=== PATIENT | female | born 1935 | race Caucasian/White ===

== ENCOUNTER 2018-04-03 09:44 | Inpatient (IN) | payer MEDICARE ==
[2018-04-03] VITALS (15 sets, daily range): BP systolic 98–154; BP diastolic 60–97
[~2018-04-03] VITALS: Ht 165.1 cm; Wt 93.8 kg
[~2018-04-03 09:44] MED LIST: ACYCLOVIR400 MG PO; ADLT ASA LOW81 MG PO; LASIX 20 MG TAB20 MG PO; LORTAB 5 PO; LORTAB 7.5-3251 TAB PO; LOVASTATIN20 M1 PO; LOVASTATIN20 MG PO; LYRICA50 MG PO; METO50TA52 PO; METOPROL TAR50 MG PO; METOPROLOL TART50 MG PO; NAPROSYN500 MG PO; PERCOCET 10/31 COMBO PO; POT CHLORIDE10 ME1 PO; PREVACID15 M1 PO; PREVACID30 M3 PO; UNABLE TO RECONCILE; XANAX0.25 MG PO; ZPAK PO
[2018-04-03 10:06] LABS: HEMATOCRIT 32.4 % (37.0-47.0); HEMOGLOBIN 10.4 g/dl (12.0-16.0); IMMATURE GRANULOCYTES 0.4 % (0.0-5.0); MEAN CELL VOLUME 96.7 fL CALC (80.0-100.0); MEAN CORPUSCULAR HGB CONC 32.1 g/L CALC (32.0-36.0); NEUT# 4.4 thou/uL (2.00-7.15); RED BLOOD COUNT 3.35 mill/uL (4.20-5.60); RED CELL DISTRI WIDTH 14.3 % (11.5-15.5)
[2018-04-03 10:31] LABS: ALBUMIN 3.7 g/dL (3.2-5.0); ALKALINE PHOSPHATASE 118 u/l (38-126); ANION GAP 15 (6-22 (CALC)); BILIRUBIN, TOTAL 1.1 mg/dL (0.0-1.4); BUN 18 mg/dL (8-23); BUN/CREATININE RATIO 17 (12-20 (CALC)); CARBON DIOXIDE 27 mmol/l (22-30); CHLORIDE 96 mmol/l (95-108); CREATININE 1.1 mg/dL (0.5-1.0); GFR 47 ML/MIN (>=60 (CALC)); GFR FOR AFR.AMER. 57 ML/MIN (>=60 (CALC)); POTASSIUM 4.7 mmol/l (3.5-5.1); SGOT/AST 27 u/l (9-36); SODIUM 132 mmol/l (137-146); TOTAL PROTEIN 6.9 g/dL (6.3-8.2)
[2018-04-03 10:35] LABS: INTERNATIONAL NORMALIZED RATIO 5.8 RATIO (0.7-1.3); PROTHROMBIN TIME 59.6 SECONDS (9.0-12.5)
[2018-04-03 10:42] LABS: MYOGLOBIN 115 ng/mL (0 - 62)
[2018-04-03] MEDS ORDERED: BUMETANIDE0.5 M1 PO (12:40)
[2018-04-03] MEDS ORDERED: BUSPAR5 M1 PO (12:42)
[2018-04-03] MEDS ORDERED: COUMADIN5 MG PO (12:45)
[2018-04-03] MEDS ORDERED: FOLIC ACID400 MC1 PO (12:48)
[2018-04-03] MEDS ORDERED: LASIX 40 MG TAB40 MG PO (12:50)
[2018-04-03] MEDS ORDERED: LEXAPRO5 MG PO (12:52)
[2018-04-03] MEDS ORDERED: ALTOPREV20 MG PO (12:53)
[2018-04-03] MEDS ORDERED: MULTIVITAMI9 PO (12:54)
[2018-04-03] MEDS ORDERED: SENNA-TABS8.6 MG PO (12:58)
[2018-04-03] MEDS ORDERED: AZITHROMYCIN500 MG PO (13:04)
[2018-04-03] MEDS ORDERED: COREG6.25 MG PO (13:06)
[2018-04-03] MEDS ORDERED: POTASSIUM CHLO10 MEQ PO (13:07)
[2018-04-03] MEDS ORDERED: NYSTATIN100000 UNI TOP (13:12)
[2018-04-03] MEDS ORDERED: IPRATROPIU0.5 MG/3 M IN (13:14)
[2018-04-03] MEDS ORDERED: ACETAMINOPHEN325 MG PO (13:16)
[2018-04-03] MEDS ORDERED: TRAMADOL HYDROC50 MG PO (13:19)
[2018-04-03] MEDS ORDERED: MIRALAX3350 NF PO (13:20)
[2018-04-03 15:07] LABS: URINE BILIRUBIN - DIPSTICK NEGATIVE (NEGATIVE); URINE BLOOD DIPSTICK MODERATE (NEGATIVE); URINE COLOR YELLOW; URINE GLUCOSE - DIPSTICK NEGATIVE (NEGATIVE); URINE KETONE NEGATIVE (NEGATIVE); URINE LEUK ESTERASE NEGATIVE (NEGATIVE); URINE NITRITE - DIPSTICK NEGATIVE (Negative); URINE PH 5.5 (4.5-8.0); URINE PROTEIN - DIPSTICK NEGATIVE (NEG-TRACE); URINE UROBILINOGEN - DIPSTICK 0.2 E.U./dL (0.2)
[2018-04-03 15:40] LABS: URINE CLARITY CLEAR
[2018-04-03 16:03] LABS: URINE SQUAMOUS EPITHELIAL CELL FEW EPI/hpf (0-FEW)
[2018-04-04] VITALS (21 sets, daily range): BP systolic 92–137; BP diastolic 59–94
[2018-04-04 05:19] LABS: HEMOGLOBIN 9.4 g/dl (12.0-16.0); IMMATURE GRANULOCYTES 0.2 % (0.0-5.0); MEAN CELL VOLUME 96.3 fL CALC (80.0-100.0); MEAN CORPUSCULAR HGB 31.2 pG CALC (26.0-32.0); MEAN CORPUSCULAR HGB CONC 32.4 g/L CALC (32.0-36.0); NEUT# 3.95 thou/uL (2.00-7.15); RED BLOOD COUNT 3.01 mill/uL (4.20-5.60); RED CELL DISTRI WIDTH 14.4 % (11.5-15.5)
[2018-04-04 05:35] LABS: INTERNATIONAL NORMALIZED RATIO 3.7 RATIO (0.7-1.3); PROTHROMBIN TIME 38.1 SECONDS (9.0-12.5)
[2018-04-04 05:38] LABS: ALBUMIN 3.8 g/dL (3.2-5.0); BILIRUBIN, TOTAL 1.5 mg/dL (0.0-1.4); CREATININE 1.2 mg/dL (0.5-1.0); MAGNESIUM 1.7 mg/dL (1.6-2.3); POTASSIUM 3.8 mmol/l (3.5-5.1); TOTAL PROTEIN 6.7 g/dL (6.3-8.2)
[2018-04-05] VITALS (15 sets, daily range): BP systolic 98–137; BP diastolic 62–85
[2018-04-05 06:04] LABS: INTERNATIONAL NORMALIZED RATIO 4.1 RATIO (0.7-1.3); PROTHROMBIN TIME 42.5 SECONDS (9.0-12.5)
[2018-04-05 06:05] LABS: HEMOGLOBIN 9.8 g/dl (12.0-16.0); MEAN CELL VOLUME 96.8 fL CALC (80.0-100.0); MEAN CORPUSCULAR HGB 31.6 pG CALC (26.0-32.0); MEAN CORPUSCULAR HGB CONC 32.7 g/L CALC (32.0-36.0); RED BLOOD COUNT 3.1 mill/uL (4.20-5.60); RED CELL DISTRI WIDTH 14.6 % (11.5-15.5)
[2018-04-05 06:45] LABS: CREATININE 1.5 mg/dL (0.5-1.0); POTASSIUM 4.1 mmol/l (3.5-5.1)
[2018-04-06] VITALS (17 sets, daily range): BP systolic 90–133; BP diastolic 60–85
[2018-04-06 05:53] LABS: HEMATOCRIT 30.2 % (37.0-47.0); HEMOGLOBIN 9.7 g/dl (12.0-16.0); MEAN CELL VOLUME 97.7 fL CALC (80.0-100.0); MEAN CORPUSCULAR HGB 31.4 pG CALC (26.0-32.0); MEAN CORPUSCULAR HGB CONC 32.1 g/L CALC (32.0-36.0); RED BLOOD COUNT 3.09 mill/uL (4.20-5.60); RED CELL DISTRI WIDTH 14.4 % (11.5-15.5)
[2018-04-06 06:18] LABS: CREATININE 1.5 mg/dL (0.5-1.0); MAGNESIUM 1.6 mg/dL (1.6-2.3); POTASSIUM 4.1 mmol/l (3.5-5.1)
[2018-04-06 06:30] LABS: INTERNATIONAL NORMALIZED RATIO 5.9 RATIO (0.7-1.3); PROTHROMBIN TIME 60.4 SECONDS (9.0-12.5)
[2018-04-07] VITALS (13 sets, daily range): BP systolic 101–134; BP diastolic 65–88
[2018-04-07 05:34] LABS: HEMATOCRIT 29.2 % (37.0-47.0); HEMOGLOBIN 9.4 g/dl (12.0-16.0); IMMATURE GRANULOCYTES 0.4 % (0.0-5.0); MEAN CELL VOLUME 97.7 fL CALC (80.0-100.0); MEAN CORPUSCULAR HGB 31.4 pG CALC (26.0-32.0); MEAN CORPUSCULAR HGB CONC 32.2 g/L CALC (32.0-36.0); NEUT# 3.7 thou/uL (2.00-7.15); RED BLOOD COUNT 2.99 mill/uL (4.20-5.60); RED CELL DISTRI WIDTH 14.4 % (11.5-15.5)
[2018-04-07 05:40] LABS: ALBUMIN 3.3 g/dL (3.2-5.0); BILIRUBIN, TOTAL 1.2 mg/dL (0.0-1.4); CREATININE 1.5 mg/dL (0.5-1.0); MAGNESIUM 1.9 mg/dL (1.6-2.3); POTASSIUM 4.3 mmol/l (3.5-5.1); TOTAL PROTEIN 6.1 g/dL (6.3-8.2)
[2018-04-07 05:46] LABS: INTERNATIONAL NORMALIZED RATIO 5.6 RATIO (0.7-1.3)
[2018-04-08 05:26] VITALS: BP 134/89
[2018-04-08 05:44] LABS: ALBUMIN 3.4 g/dL (3.2-5.0); BILIRUBIN, TOTAL 1.1 mg/dL (0.0-1.4); CREATININE 1.6 mg/dL (0.5-1.0); HEMATOCRIT 29.2 % (37.0-47.0); HEMOGLOBIN 9.3 g/dl (12.0-16.0); IMMATURE GRANULOCYTES 0.6 % (0.0-5.0); MEAN CORPUSCULAR HGB 31.2 pG CALC (26.0-32.0); MEAN CORPUSCULAR HGB CONC 31.8 g/L CALC (32.0-36.0); NEUT# 3.37 thou/uL (2.00-7.15); POTASSIUM 4.4 mmol/l (3.5-5.1); RED BLOOD COUNT 2.98 mill/uL (4.20-5.60); RED CELL DISTRI WIDTH 14.5 % (11.5-15.5); TOTAL PROTEIN 6.1 g/dL (6.3-8.2)
[2018-04-08 08:00] VITALS: BP 99/60
[2018-04-08 15:45] VITALS: BP 98/66
[2018-04-08 19:52] VITALS: BP 125/63
[2018-04-09 04:50] VITALS: BP 149/87
[2018-04-09 05:40] LABS: HEMATOCRIT 30.9 % (37.0-47.0); HEMOGLOBIN 9.7 g/dl (12.0-16.0); IMMATURE GRANULOCYTES 0.4 % (0.0-5.0); MEAN CELL VOLUME 100.3 fL CALC (80.0-100.0); MEAN CORPUSCULAR HGB 31.5 pG CALC (26.0-32.0); MEAN CORPUSCULAR HGB CONC 31.4 g/L CALC (32.0-36.0); NEUT# 3.38 thou/uL (2.00-7.15); RED BLOOD COUNT 3.08 mill/uL (4.20-5.60); RED CELL DISTRI WIDTH 14.9 % (11.5-15.5)
[2018-04-09 06:02] LABS: POTASSIUM 4.4 mmol/l (3.5-5.1)
[2018-04-09 07:56] VITALS: BP 132/79
[2018-04-09 08:49] VITALS: BP 132/79
[2018-04-09 09:40] LABS: INTERNATIONAL NORMALIZED RATIO 3.3 RATIO (0.7-1.3); PROTHROMBIN TIME 34.3 SECONDS (9.0-12.5)
== END 2018-04-09 15:05 | DRG 291 ==
LOC: ED 09:44 → ED-I 11:05 → ED 11:45 → ICU 11:46 → MS2 04-07 10:58
PROVIDERS: Emergency Medicine; Internal Medicine; ADMIT Internal Medicine Nephrology; ATTEND Internal Medicine Geriatric Medicine
PROC: 0T9B70Z Drainage of Bladder with Drainage Device, Via Natural or Artificial Opening (ICD-10-PCS; principal; 2018-04-03)
PROC: 30233K1 Transfusion of Nonautologous Frozen Plasma into Peripheral Vein, Percutaneous Approach (ICD-10-PCS; 2018-04-03)
PROC: 30233K1 Transfusion of Nonautologous Frozen Plasma into Peripheral Vein, Percutaneous Approach (ICD-10-PCS; 2018-04-03)
DX: I13.0 Hypertensive heart and chronic kidney disease with heart failure and stage 1 through stage 4 chronic kidney disease, or unspecified chronic kidney disease (principal); J18.9 Pneumonia, unspecified organism; I50.23 Acute on chronic systolic (congestive) heart failure; N17.9 Acute kidney failure, unspecified; N39.0 Urinary tract infection, site not specified; I48.2 Chronic atrial fibrillation; K21.9 Gastro-esophageal reflux disease without esophagitis; F41.9 Anxiety disorder, unspecified; I25.10 Atherosclerotic heart disease of native coronary artery without angina pectoris; E78.5 Hyperlipidemia, unspecified; E66.01 Morbid (severe) obesity due to excess calories; N18.3 Chronic kidney disease, stage 3 (moderate); D63.8 Anemia in other chronic diseases classified elsewhere; G62.9 Polyneuropathy, unspecified; K59.00 Constipation, unspecified; R73.9 Hyperglycemia, unspecified; R79.1 Abnormal coagulation profile; T45.515A Adverse effect of anticoagulants, initial encounter; B95.2 Enterococcus as the cause of diseases classified elsewhere; Y95 Nosocomial condition; Z96.642 Presence of left artificial hip joint; Z68.35 Body mass index [BMI] 35.0-35.9, adult; Z79.01 Long term (current) use of anticoagulants
CPT/HCPCS: J0282; J1650

== ENCOUNTER 2018-05-10 19:06 | Emergency (ER) | payer MEDICARE ==
[~2018-05-10 19:06] MED LIST changes: +ACETAMINOPHEN325 MG PO; +ALTOPREV20 MG PO; +AZITHROMYCIN500 MG PO; +BUMETANIDE0.5 M1 PO; +BUSPAR5 M1 PO; +COREG6.25 MG PO; +COUMADIN5 MG PO; +FOLIC ACID400 MC1 PO; +IPRATROPIU0.5 MG/3 M IN; +LASIX 40 MG TAB40 MG PO; +LEXAPRO5 MG PO; +MIRALAX3350 NF PO; +MULTIVITAMI9 PO; +NYSTATIN100000 UNI TOP; +POTASSIUM CHLO10 MEQ PO; +SENNA-TABS8.6 MG PO; +TRAMADOL HYDROC50 MG PO
== END 2018-05-10 21:30 | disposition expired ==
LOC: ED 19:06
PROC: 0BH17EZ Insertion of Endotracheal Airway into Trachea, Via Natural or Artificial Opening (ICD-10-PCS; principal; 2018-05-10)
PROC: 5A12012 Performance of Cardiac Output, Single, Manual (ICD-10-PCS; 2018-05-10)
DX: I46.9 Cardiac arrest, cause unspecified (principal); I10 Essential (primary) hypertension; E78.00 Pure hypercholesterolemia, unspecified; K21.9 Gastro-esophageal reflux disease without esophagitis; F41.9 Anxiety disorder, unspecified; I48.91 Unspecified atrial fibrillation